=== PATIENT | female | born 1990 | race Two or more races ===

== ENCOUNTER → 2021-12-20 | Emergency (ER) | payer OTHER ==
[~2021-12-20] VITALS: Ht 180.3 cm; Wt 88.9 kg
[~2021-12-20] MED LIST: PRENATAL + DHA1 EAC1 PO; PROZAC10 MG PO; SEROQUEL50 MG PO
== END | disposition home or self-care (01) ==
LOC: ER 16:21
DX: A49.3 Mycoplasma infection, unspecified site (principal); Z20.828 Contact with and (suspected) exposure to other viral communicable diseases

== ENCOUNTER 2022-01-16 15:54 | Emergency (ER) | payer OTHER ==
[~2022-01-16] VITALS: Ht 180.3 cm; Wt 88.5 kg
[~2022-01-16 15:54] MED LIST changes: +KEPPRA500 MG PO
== END 2022-01-16 21:24 | disposition home or self-care (01) ==
LOC: ER 15:54
DX: O46.92 Antepartum hemorrhage, unspecified, second trimester (principal)

== ENCOUNTER 2022-01-17 10:04 | Outpatient (CLI) | payer OTHER | END 2022-01-17 11:15 | disposition home or self-care (01) | LOC: PRENATAL 10:04 | PROVIDERS: ATTEND Obstetrics & Gynecology Maternal & Fetal Medicine | DX: Z76.1 Encounter for health supervision and care of foundling (principal) ==

== ENCOUNTER 2022-03-16 12:41 | Outpatient (CLI) | payer OTHER | END 2022-03-16 13:58 | disposition home or self-care (01) | LOC: PRENATAL 12:41 | PROVIDERS: ATTEND Obstetrics & Gynecology Maternal & Fetal Medicine | DX: O35.9XX0 Maternal care for (suspected) fetal abnormality and damage, unspecified, not applicable or unspecified (principal); O34.219 Maternal care for unspecified type scar from previous cesarean delivery; Z3A.21 21 weeks gestation of pregnancy ==

== ENCOUNTER 2022-03-27 15:29 | Inpatient (IN) | payer OTHER ==
[~2022-03-27] VITALS: Ht 180.3 cm; Wt 193.7 kg
--- NOTE | 2022-03-27 15:40 | NUR ---
PATIENT IS RECIEVED IN AMBULANCE UNIT AND SAYS SHE IS 23 WEEKS AND HAS BEEN EXPERIENCING CONVULSIONS SINCE TODAY.
--- NOTE | 2022-03-27 17:43 | NUR ---
PTE ES EVALUADO POR DR RIGGS. SE ORIENTA A PTE Y VERBALIZA QUE ACCEPTA. SE EJECUTA ORDEN MEDICA EN [place] TOTALIDAD
== END 2022-03-29 18:24 | disposition home or self-care (01) | DRG 832 ==
LOC: ER 15:29 → OB/GYN 21:00
PROVIDERS: ADMIT Obstetrics & Gynecology Obstetrics; ATTEND Obstetrics & Gynecology Obstetrics
PROC: B030ZZZ Magnetic Resonance Imaging (MRI) of Brain (ICD-10-PCS; principal; 2022-03-27)
PROC: BY4CZZZ Ultrasonography of Second Trimester, Single Fetus (ICD-10-PCS; 2022-03-27)
PROC: 4A1HXCZ Monitoring of Products of Conception, Cardiac Rate, External Approach (ICD-10-PCS; 2022-03-27)
DX: O99.352 Diseases of the nervous system complicating pregnancy, second trimester (principal); F31.89 Other bipolar disorder; G40.802 Other epilepsy, not intractable, without status epilepticus; O99.342 Other mental disorders complicating pregnancy, second trimester; O99.012 Anemia complicating pregnancy, second trimester; D64.9 Anemia, unspecified; O46.8X2 Other antepartum hemorrhage, second trimester; Z3A.22 22 weeks gestation of pregnancy; Z20.822 Contact with and (suspected) exposure to COVID-19
CPT/HCPCS: 70544

== ENCOUNTER 2022-05-31 14:09 | Outpatient (CLI) | payer OTHER | END 2022-05-31 15:00 | disposition home or self-care (01) | LOC: PRENATAL 14:09 | PROVIDERS: ATTEND Obstetrics & Gynecology Maternal & Fetal Medicine | DX: O26.849 Uterine size-date discrepancy, unspecified trimester (principal); O34.219 Maternal care for unspecified type scar from previous cesarean delivery; O35.9XX0 Maternal care for (suspected) fetal abnormality and damage, unspecified, not applicable or unspecified; Z3A.31 31 weeks gestation of pregnancy ==